=== PATIENT | male | born 1945 | race Hispanic/Latino ===

== ENCOUNTER 2018-08-24 12:25 | Emergency (ER) | payer SELFPAY ==
[2018-08-24 12:27] VITALS: BMI 27.3
--- NOTE | 2018-08-24 12:57 | ED PDOC ---
Arrival/HPI - General Chief Complaint: Cardiac Arrest Historian: Family, EMS EM Caveat: Acuity of Condition - Critical Care Critical Care Minutes: 45 minutes - History of Present Illness Narrative History of Present Illness (Text): 08/24/18 12:26 73 year old male, smoker, whose past medical history includes CVA (left hand paralysis), brought in by EMS for cardiac arrest. Family state patient was in the laundry mat, when he went upstairs to use the bathroom, 10 minutes later as they were checking on him, he was unresponsive, they broke the door down and found the patient unresponsive on the toilet, proceeded to call EMS. On route EMS reports he had been down for 40 minutes altogether and they had administered 4 rounds of epi and 1 bicarp on route. They report an organized PEA, a sugar level of 324, and that they have been suctioning blood from airway. HPI and ROS are limited due to patients acuity of condition. Time/Duration: Prior to Arrival Symptom Onset: Sudden Symptom Course: Unchanged Context: Home Past Medical History - Provider Review Nursing Documentation Reviewed: Yes - Travel History Have you recently traveled outside [place] w/in the past 3 mons?: No - Infectious Disease Hx of Infectious Diseases: None - Cardiac Hx Cardiac Disorders: No - Pulmonary Hx Respiratory Disorders: No - Neurological Hx Neurological Disorder: Yes HX Cerebrovascular Accident: Yes (L hand paralysis) - HEENT Hx HEENT Disorder: No - Renal Hx Renal Disorder: No - Endocrine/Metabolic Hx Endocrine Disorders: No - Psychiatric Hx Depression: No Hx Emotional Abuse: No Hx Physical Abuse: No Hx Substance Use: No - Suicidal Assessment Feels Threatened In Home Enviroment: No Family/Social History - Physician Review Nursing Documentation Reviewed: Yes Family/Social History: No Known Family HX Smoking Status: Light Smoker < 10 Cigarettes Daily Hx Alcohol Use: No Hx Substance Use: No Hx Substance Use Treatment: Yes Allergies/Home Meds Allergies/Adverse Reactions: Allergies No Known Allergies Allergy (Verified 11/24/15 13:33) Home Medications: Home Meds Medication Instructions Recorded Confirmed Aspirin [Adult Low Dose Aspirin EC] 81 mg PO DAILY 11/24/15 11/24/15 Review of Systems - Review of Systems Systems not reviewed;Unavailable: Acuity of Condition Physical Exam - Physical Exam Physical Exam Limitations: Clinical Condition Vital Signs Reviewed: Yes Pulse: Pulseless Respiratory Rate: Mechanically Ventilated - Systems Exam Pupils: Present: Non-Reactive Mouth: Present: Dry Nose (External): Present: Other (Intubated) Cardiovascular: Present: Other (PEA) Abdomen: No: Distention Upper Extremity: Present: Other (Interosseous catheter w/in proximal humerus) Skin: Present: Other (Mottled extremities. Facial pallor nored) Medical Decision Making ED Course and Treatment: 08/24/18 12:26 Impression: 73 year old male who presents to the emergency department unresponsive s/p cardiac arrest. Prior Visits: Notes and results from previous visits were reviewed. Progress Notes: 08/24/18 12:26 Patient arrived to the emergency department on Steve device with PEA visible on monitor. 12:28 CPR paused for pulse check, no pulse compressions continue. 12:30 EPI administered. Compressions continued. 12:31 CPR paused for pulse check, no pulse compressions continue. 12:32 Calcium gluconate and EPI administered. 12:33 Bicarbonate administered 12:34 CPR paused for pulse check, no pulse compressions continue. 12:36 EPI administered 12:38 Time of . 13:15 Spoke to medical officer who agrees to review case. - Critical Care Critical Care Minutes: 45 minutes - Scribe Statement The provider has reviewed the documentation as recorded by the Scribe Daniela Crowder Provider Scribe Attestation: All medical record entries made by the Scribe were at my direction and personally dictated by me. I have reviewed the chart and agree that the record accurately reflects my personal performance of the history, physical exam, medical decision making, and the department course for this patient. I have also personally directed, reviewed, and agree with the discharge instructions and disposition. Disposition/Present on Arrival - Present on Arrival Any Indicators Present on Arrival: No History of DVT/PE: No History of Uncontrolled Diabetes: No Urinary Catheter: No History of Decub. Ulcer: No History Surgical Site Infection Following: None - Disposition Have Diagnosis and Disposition been Completed?: Yes Diagnosis: Cardiopulmonary arrest Disposition: WITH WITHOUT AUTOPSY Disposition Time: 14:06 Condition: CRITICAL Referrals: PCP,NO [Primary Care Provider] - Follow up with primary Forms: [employer] ([place])
== END 2018-08-24 16:23 ==
LOC: ED 12:25
DX: I46.9 Cardiac arrest, cause unspecified (principal); Z86.73 Personal history of transient ischemic attack (TIA), and cerebral infarction without residual deficits; F17.210 Nicotine dependence, cigarettes, uncomplicated